=== PATIENT | male | born 1970 ===

== ENCOUNTER 2019-09-02 19:04 | Emergency (ER) | payer BC ==
[2019-09-02] MEDS ORDERED: Ketorolac 30 MG/ML SDV IVPUSH ONE (19:23)
[2019-09-02] MEDS ORDERED: Sodium Chloride 0.9% 2.5 ML Syringe FLUSH PRN (19:23)
[2019-09-02] MEDS ORDERED: Sodium Chloride 0.9% 10 ML Syringe FLUSH PRN (19:23)
[2019-09-02] MEDS ORDERED: Sodium Chloride 0.9% 1,000 ML IV ONE ×2 (19:23→20:08)
--- NOTE | 2019-09-02 19:25 | EDM.PDOC ---
ED HPI GENERAL MEDICAL PROBLEM - General Chief Complaint: General Stated Complaint: LEG PAIN Time Seen by Provider: 09/02/19 19:16 - History of Present Illness INITIAL COMMENTS - FREE TEXT/NARRATIVE: HISTORY AND PHYSICAL: History of present illness: The patient is a 49-year-old male who presents with complaints of sudden onset of cramping in his left foot going up to his left leg then bilateral lower extremities which is now just persistent in his right thigh his left lower leg and then there was an episode in his left hand. He has no fever chills chest pain or shortness of breath no abdominal pain nausea or vomiting and denies any trauma to these areas. He says that he is concerned. He is dehydrated because he did not drink much water today he did not eat regularly which is unusual for him. He has no weakness in the extremities and no bony or joint pain. He did not fall and he has difficulty ambulating because of the cramping and spasm. He has no back pain no neck pain and no other systemic complaints and no recent fevers. Earlier today he was having a normal day when this came on. She has been urinating but says he's going little more frequently and he doesn't think that it looks particularly dark The patient tells me the symptoms originated in his left foot and then migrated to his leg and then proceeded to go to the right side. Review of systems: As per history of present illness and below otherwise all systems reviewed and negative. Past medical history: As per history of present illness and as reviewed below otherwise noncontributory. Surgical history: As per history of present illness and as reviewed below otherwise noncontributory. Social history: No reported history of drug or alcohol abuse. Family history: As per history of present illness and as reviewed below otherwise noncontributory. Physical exam: General: Well-developed well-nourished man who is nontoxic but looks very uncomfortable in the room and keeps rubbing his legs and is uneasy. HEENT: Atraumatic, normocephalic, pupils reactive, negative for conjunctival pallor or scleral icterus, mucous membranes moist, throat clear, neck supple, nontender, trachea midline. Lungs: Clear to auscultation, breath sounds equal bilaterally, chest nontender. Heart: S1S2, regular rhythm and tachycardic rate of my evaluation but no overt murmurs Abdomen: Soft, nondistended, nontender. Negative for masses or hepatosplenomegaly. Negative for costovertebral tenderness. Pelvis: Stable nontender. Genitourinary: Deferred. Rectal: Deferred. Extremities: Atraumatic, negative for cords or calf pain. Neurovascular unremarkable. There is no leg asymmetry pedal edema or calf swelling. There is tenderness with palpation of the right thigh area as he says this is the area of the spasm as well as his left leg extending into his foot. There are no palpable bony deformities and the patient has full range of motion without defects or deficits Neuro: Awake, alert, oriented. Cranial nerves II through XII unremarkable. Cerebellum unremarkable. Motor and sensory unremarkable throughout. Exam nonfocal. Diagnostics: EKG CBC CMP CPK magnesium UA with reflex hemoglobin A1c Therapeutics: IV fluids Toradol Valium Norflex metformin The patient is feeling much improved and will receive a second liter of IV fluids. He is aware of testing results and his heart rate has improved significantly. I will send him home on Norflex and have also advised ibuprofen 800 mg and stretching exercises. I've also discussed his blood work from her perspective of incidental findings which include the elevated glucose despite not eating much food today, the glucose in his urine and his hemoglobin A1c. I discussed these findings with our hospitalist Dr. Krishnan at 2100 hrs. she and I both agree that the patient should be started on medication and she recommends metformin 500 twice a day. She feels that the patient will need insulin for short. Time and needs expedited follow-up which I agree. I discussed this entire conversation and this care plan with the patient and at bedside and they are agreeable. I will give him his first dose of metformin here and have him start looking at his diet avoid concentrated sweets and be more conscious of his carb intake. They can get him set up with the development educator from the clinic. Impression: Muscle cramping of extremities improved; new onset diabetes stable Definitive disposition and diagnosis as appropriate pending reevaluation and review of above. lower extremities Pain Score (Numeric/FACES): 8 - Related Data Allergies Allergy/AdvReac Type Severity Reaction Status Date / Time No Known Allergies Allergy Verified 09/02/19 19:19 Home Meds: Home Meds . [No Known Home Meds] 08/04/16 [History] Past Medical History Respiratory History: Reports: Pneumonia, Recurrent Other Respiratory History: PLUERICY - Infectious Disease History Infectious Disease History: Reports: Chicken Pox - Past Surgical History GI Surgical History: Reports: Cholecystectomy Social & Family History - Family History Family Medical History: Noncontributory Respiratory: Reports: COPD - Tobacco Use Smoking Status *Q: Never Smoker - Caffeine Use Caffeine Use: Reports: Coffee - Recreational Drug Use Recreational Drug Use: No ED ROS GENERAL - Review of Systems Review Of Systems: Comprehensive ROS is negative, except as noted in HPI. ED EXAM, GENERAL - Physical Exam Exam: See Below (see dictation) Course - Vital Signs Last Recorded V/S: Last Vital Signs Temp 35.5 C 09/02/19 19:04 Pulse 86 09/02/19 20:00 Resp 18 09/02/19 20:00 BP 130/88 09/02/19 20:00 Pulse Ox 97 09/02/19 20:00 - Orders/Labs/Meds Orders: Active Orders 24 hr Category Date Time Status Sodium Chloride 0.9% [Saline Flush] Med 09/02/19 19:23 Active 10 ml FLUSH ASDIRECTED PRN Sodium Chloride 0.9% [Saline Flush] Med 09/02/19 19:23 Active 2.5 ml FLUSH ASDIRECTED PRN metFORMIN [Glucophage] Med 09/02/19 21:08 Once 500 mg PO ONETIME ONE Saline Lock Insert [OM.PC] Stat Oth 09/02/19 19:23 Ordered Medication Orders Sodium Chloride (Saline Flush) 10 ml FLUSH ASDIRECTED PRN PRN Reason: Keep Vein Open Sodium Chloride (Saline Flush) 2.5 ml FLUSH ASDIRECTED PRN PRN Reason: Keep Vein Open Labs: Laboratory Tests 09/02/19 09/02/19 09/02/19 Range/Units 19:20 19:20 19:20 WBC 8.05 (4.0-11.0) K/uL RBC 4.78 (4.50-5.90) M/uL Hgb 14.2 (13.0-17.0) g/dL Hct 40.6 (38.0-50.0) % MCV 84.9 (80.0-98.0) fL MCH 29.7 (27.0-32.0) pg MCHC 35.0 (31.0-37.0) g/dL RDW Std Deviation 39.1 (28.0-62.0) fl RDW Coeff of Deya 13 (11.0-15.0) % Plt Count 237 (150-400) K/uL MPV 10.00 (7.40-12.00) fL Neut % (Auto) 58.7 (48.0-80.0) % Lymph % (Auto) 33.7 (16.0-40.0) % [place] % (Auto) 7.0 (0.0-15.0) % Eos % (Auto) 0.4 (0.0-7.0) % Baso % (Auto) 0.2 (0.0-1.5) % Neut # (Auto) 4.7 (1.4-5.7) K/uL Lymph # (Auto) 2.7 H (0.6-2.4) K/uL [place] # (Auto) 0.6 (0.0-0.8) K/uL Eos # (Auto) 0.0 (0.0-0.7) K/uL Baso # (Auto) 0.0 (0.0-0.1) K/uL Nucleated RBC % 0.0 /100WBC Nucleated RBCs # 0 K/uL Sodium 136 (136-148) mmol/L Potassium 4.0 (3.5-5.1) mmol/L Chloride 101 (98-107) mmol/L Carbon Dioxide 26.9 (21.0-32.0) mmol/L BUN 17 (7.0-18.0) mg/dL Creatinine 1.0 (0.8-1.3) mg/dL Est Cr Clr Drug Dosing 91.25 mL/min Estimated GFR (MDRD) > 60.0 ml/min Glucose 257 H (74-106) mg/dL Hemoglobin A1c 9.5 H (4.5-6.2) % Calcium 8.7 (8.5-10.1) mg/dL Magnesium 1.8 (1.8-2.4) mg/dL Total Bilirubin 0.5 (0.2-1.0) mg/dL AST 17 (15-37) IU/L ALT 49 (14-63) IU/L Alkaline Phosphatase 128 H (46-116) U/L Creatine Kinase 130 (26-308) U/L Total Protein 7.5 (6.4-8.2) g/dL Albumin 4.2 (3.4-5.0) g/dL Globulin 3.3 (2.6-4.0) g/dL Albumin/Globulin Ratio 1.3 (0.9-1.6) Urine Color Urine Appearance Urine pH (5.0-8.0) Ur Specific Chapman (1.001-1.035) Urine Protein (NEGATIVE) mg/dL Urine Glucose (UA) (NEGATIVE) mg/dL Urine Ketones (NEGATIVE) mg/dL Urine Occult Blood (NEGATIVE) Urine Nitrite (NEGATIVE) Urine Bilirubin (NEGATIVE) Urine Urobilinogen (<2.0) EU/dL Ur Leukocyte Esterase (NEGATIVE) 09/02/19 Range/Units 20:00 WBC (4.0-11.0) K/uL RBC (4.50-5.90) M/uL Hgb (13.0-17.0) g/dL Hct (38.0-50.0) % MCV (80.0-98.0) fL MCH (27.0-32.0) pg MCHC (31.0-37.0) g/dL RDW Std Deviation (28.0-62.0) fl RDW Coeff of Deya (11.0-15.0) % Plt Count (150-400) K/uL MPV (7.40-12.00) fL Neut % (Auto) (48.0-80.0) % Lymph % (Auto) (16.0-40.0) % [place] % (Auto) (0.0-15.0) % Eos % (Auto) (0.0-7.0) % Baso % (Auto) (0.0-1.5) % Neut # (Auto) (1.4-5.7) K/uL Lymph # (Auto) (0.6-2.4) K/uL [place] # (Auto) (0.0-0.8) K/uL Eos # (Auto) (0.0-0.7) K/uL Baso # (Auto) (0.0-0.1) K/uL Nucleated RBC % /100WBC Nucleated RBCs # K/uL Sodium (136-148) mmol/L Potassium (3.5-5.1) mmol/L Chloride (98-107) mmol/L Carbon Dioxide (21.0-32.0) mmol/L BUN (7.0-18.0) mg/dL Creatinine (0.8-1.3) mg/dL Est Cr Clr Drug Dosing mL/min Estimated GFR (MDRD) ml/min Glucose (74-106) mg/dL Hemoglobin A1c (4.5-6.2) % Calcium (8.5-10.1) mg/dL Magnesium (1.8-2.4) mg/dL Total Bilirubin (0.2-1.0) mg/dL AST (15-37) IU/L ALT (14-63) IU/L Alkaline Phosphatase (46-116) U/L Creatine Kinase (26-308) U/L Total Protein (6.4-8.2) g/dL Albumin (3.4-5.0) g/dL Globulin (2.6-4.0) g/dL Albumin/Globulin Ratio (0.9-1.6) Urine Color YELLOW Urine Appearance CLEAR Urine pH 5.5 (5.0-8.0) Ur Specific [place] 1.020 (1.001-1.035) Urine Protein NEGATIVE (NEGATIVE) mg/dL Urine Glucose (UA) >=1000 (NEGATIVE) mg/dL Urine Ketones NEGATIVE (NEGATIVE) mg/dL Urine Occult Blood NEGATIVE (NEGATIVE) Urine Nitrite NEGATIVE (NEGATIVE) Urine Bilirubin NEGATIVE (NEGATIVE) Urine Urobilinogen 0.2 (<2.0) EU/dL Ur Leukocyte Esterase NEGATIVE (NEGATIVE) Meds: Medications Generic Name Dose Route Start Last Admin Trade Name Freq PRN Reason Stop Dose Admin Sodium Chloride 10 ml 09/02/19 19:23 Saline Flush FLUSH ASDIRECTED PRN Keep Vein Open Sodium Chloride 2.5 ml 09/02/19 19:23 Saline Flush FLUSH ASDIRECTED PRN Keep Vein Open Discontinued Medications Generic Name Dose Route Start Last Admin Trade Name Freq PRN Reason Stop Dose Admin Diazepam 1 mg 09/02/19 19:23 09/02/19 19:42 Valium IVPUSH 09/02/19 19:24 1 mg ONETIME ONE Administration Diazepam Confirm 09/02/19 19:31 09/02/19 19:53 Valium Administered 09/02/19 19:32 Not Given Dose 5 mg .ROUTE .STK-MED ONE Sodium Chloride 1,000 mls @ 999 mls/hr 09/02/19 19:23 09/02/19 19:38 Normal Saline IV 09/02/19 20:23 999 mls/hr STAT ONE Administration Sodium Chloride 1,000 mls @ 999 mls/hr 09/02/19 20:08 09/02/19 20:14 Normal Saline IV 09/02/19 21:08 999 mls/hr STAT ONE Administration Ketorolac Tromethamine 30 mg 09/02/19 19:23 09/02/19 19:38 Toradol IVPUSH 09/02/19 19:24 30 mg ONETIME ONE Administration Orphenadrine Citrate 60 mg 09/02/19 19:59 09/02/19 20:14 Norflex IV 09/02/19 20:00 60 mg ONETIME ONE Administration Departure - Departure Time of Disposition: 21:10 Disposition: Home, Self-Care 01 Condition: Good Clinical Impression: Muscle cramping, Diabetes mellitus, new onset - Discharge Information Referrals: PCP,Unknown [Primary Care Provider] - Forms: ED Department Discharge Additional Instructions: The following information is given to patients seen in the emergency department who are being discharged to home. This information is to outline your options for follow-up care. We provide all patients seen in our emergency department with a follow-up referral. The need for follow-up, as well as the timing and circumstances, are variable depending upon the specifics of your emergency department visit. If you don't have a primary care physician on staff, we will provide you with a referral. We always advise you to contact your personal physician following an emergency department visit to inform them of the circumstance of the visit and for follow-up with them and/or the need for any referrals to a consulting specialist. The emergency department will also refer you to a specialist when appropriate. This referral assures that you have the opportunity for followup care with a specialist. All of these measure are taken in an effort to provide you with optimal care, which includes your followup. Under all circumstances we always encourage you to contact your private physician who remains a resource for coordinating your care. When calling for followup care, please make the office aware that this follow-up is from your recent emergency room visit. If for any reason you are refused follow-up, please contact the [facility] emergency department at and ask to speak to the emergency department charge nurse. [facility] Primary care- Internal Medicine and Family [place] [id number] [place] [id number] Push hydration and eat normal meals and use [id number] ibuprofen/Motrin 800 mg every 8 hours for pain and inflammation. Use the muscle relaxer you have been prescribed as needed but only take when you're home as it may make you drowsy or sleepy. Start doing some stretching exercises of your extremity muscles as we discussed. Please start watching her diet avoiding concentrated sweets and limiting carbohydrate intake into you can meet with the development educator. Your name has been placed on the expedited follow-up list and you need to call the clinic at 8:30 in the morning on Thursday to be seen either Thursday or Thursday making sure to tell them that you need to be followed up quickly. Be open to any of the providers including the residency clinic for this follow-up. You have been given a prescription for metformin which he need to start in the morning and take twice a day as directed. Return to ER as needed and as discussed - My Orders Last 24 Hours: My Active Orders 09/02/19 19:23 Sodium Chloride 0.9% [Saline Flush] 10 ml FLUSH ASDIRECTED PRN Sodium Chloride 0.9% [Saline Flush] 2.5 ml FLUSH ASDIRECTED PRN Saline Lock Insert [OM.PC] Stat 09/02/19 21:08 metFORMIN [Glucophage] 500 mg PO ONETIME ONE - Assessment/Plan Last 24 Hours: My Active Orders 09/02/19 19:23 Sodium Chloride 0.9% [Saline Flush] 10 ml FLUSH ASDIRECTED PRN Sodium Chloride 0.9% [Saline Flush] 2.5 ml FLUSH ASDIRECTED PRN Saline Lock Insert [OM.PC] Stat 09/02/19 21:08 metFORMIN [Glucophage] 500 mg PO ONETIME ONE
[2019-09-02] MEDS: diazePAM 5 MG/ML MDV ONE ×2 (19:39→19:53)
[2019-09-02 19:54] LABS: BLOOD UREA NITROGEN,BUN 17 mg/dL (7.0-18.0); CARBON DIOXIDE,CO2 26.9 mmol/L (21.0-32.0); CHLORIDE,CL 101 mmol/L (98-107); GLUCOSE RANDOM 257 mg/dL (74-106); SODIUM,NA 136 mmol/L (136-148)
[2019-09-02 20:53] LABS: HEMOGLOBIN A1C 9.5 % (4.5-6.2)
[2019-09-02] MEDS ORDERED: metFORMIN 500 MG Tab PO ONE (21:08)
[2019-09-02 21:34] VITALS: BP 128/89; PULSE 73
== END 2019-09-02 21:30 | disposition home or self-care (01) ==
LOC: MW.ED 19:04
DX: E11.9 Type 2 diabetes mellitus without complications (principal); M79.10 Myalgia, unspecified site; Z90.49 Acquired absence of other specified parts of digestive tract
CPT/HCPCS: 36415; 80053; 81003; 82550; 83036; 83735; 85025; 93005; 96361; 96374; 96375; 99284; A9270; J1885; J2360; J3360; J7040; 99283; J7030

== ENCOUNTER 2024-05-13 21:42 | Emergency (ER) | payer BC ==
[2024-05-13] MEDS ORDERED: Sodium Chloride 0.9% 10 ML Syringe FLUSH PRN (22:24)
[2024-05-13] MEDS ORDERED: Sodium Chloride 0.9% 2.5 ML Syringe FLUSH PRN (22:24)
[2024-05-13] MEDS: Famotidine 20 MG/2 ML SDV IVPUSH ONE (22:52)
[2024-05-13] MEDS: Ondansetron 4 MG/2 ML SDV IVPUSH ONE (22:52)
[2024-05-13] MEDS: Sodium Chloride 0.9% 1,000 ML IV ONE (22:52)
[2024-05-13 23:04] LABS: BASE EXCESS VENOUS 1.7 (-2.0-3.0); PH,VENOUS 7.39 (7.31-7.41)
[2024-05-13 23:05] LABS: BASOPHILS ABSOLUTE AUTO 0.03 K/uL (0.00-0.20); BASOPHILS PERCENT AUTO 0.6 % (0.0-1.0); EOSINOPHILS PERCENT AUTO 1.9 % (0.0-6.0); HEMATOCRIT 37.5 % (42.0-52.0); HEMOGLOBIN 13.2 g/dL (14.0-18.0); LYMPHOCYTES ABSOLUTE AUTO 2.03 K/uL (1.00-4.80); LYMPHOCYTES PERCENT AUTO 39.5 % (24.0-44.0); MEAN CORPUSCULAR HEMOGLOBIN 30.1 pg (28.0-32.0); MEAN CORPUSCULAR HGB CONC 35.2 g/dL (32.0-36.0); MEAN CORPUSCULAR VOLUME 85.4 fL (83.0-99.0); MEAN PLATELET VOLUME 9.5 fL (9.4-12.4); MONOCYTES ABSOLUTE AUTO 0.41 K/uL (0.00-0.80); NEUTROPHILS ABSOLUTE AUTO 2.57 K/uL (1.80-7.70); PLATELET COUNT,PLT 217 K/uL (150-400); RED BLOOD CELL COUNT 4.39 M/uL (4.52-5.90); WHITE BLOOD CELL COUNT,WBC 5.14 K/uL (3.9-11.3)
[2024-05-13 23:30] LABS: A/G RATIO 1.4 (0.9-1.6); ALBUMIN 3.7 g/dL (3.4-5.0); BILIRUBIN TOTAL 0.3 mg/dL (0.2-1.0); CALCIUM 8.4 mg/dL (8.5-10.1); CARBON DIOXIDE,CO2 27.5 mmol/L (21.0-32.0); CREATININE 0.8 mg/dL (0.8-1.3); EST CRCL DRUG DOSING (CG) 107.73 mL/min; POTASSIUM,K 3.8 mmol/L (3.5-5.1); PROTEIN TOTAL,TP 6.3 g/dL (6.4-8.2)
[2024-05-13 23:46] LABS: APPEARANCE,URINE CLEAR; BILIRUBIN,URINE NEGATIVE (NEGATIVE); COLOR,URINE YELLOW; GLUCOSE,URINE >=1000 mg/dL (NEGATIVE); KETONES,URINE 40 mg/dL (NEGATIVE); LEUKOCYTE ESTERASE,URINE NEGATIVE (NEGATIVE); NITRITE,URINE NEGATIVE (NEGATIVE); OCCULT BLOOD,URINE NEGATIVE (NEGATIVE); PROTEIN,URINE NEGATIVE (NEGATIVE); UROBILINOGEN,URINE 0.2 EU/dL (<2.0)
[2024-05-14 00:02] LABS: CORONAVIRUS COVID-19 NAA NEGATIVE (NEGATIVE); INFLUENZA A NAA NEGATIVE (NEGATIVE); INFLUENZA B NAA NEGATIVE (NEGATIVE); RESPIRATORY SYNCYTIAL VIR NAA NEGATIVE (NEGATIVE)
[2024-05-14 00:40] VITALS: BP 116/78; PULSE 78
== END 2024-05-14 00:37 | disposition home or self-care (01) ==
LOC: MW.ED 21:42
DX: E11.65 Type 2 diabetes mellitus with hyperglycemia (principal); Z90.49 Acquired absence of other specified parts of digestive tract
CPT/HCPCS: 0241U; 36415; 71045; 80053; 81003; 82803; 82947; 83690; 84484; 85025; 93005; 96361; 96374; 96375; 99285; J2405; J3490; J7030; 93010; 99284